=== PATIENT | female | born 1990 | race Caucasian/White ===

== ENCOUNTER 2017-11-09 17:11 | Emergency (ER) | payer OTHER ==
[~2017-11-09] VITALS: Ht 167.6 cm; Wt 68.0 kg
[2017-11-09 17:24] VITALS: TEMP 36.7; Ht 167.6 cm; Wt 68.0 kg
[2017-11-09] MEDS ORDERED: ACETAMINOPHEN 500 MG TAB PO STA (17:58)
--- NOTE | 2017-11-09 18:02 | EMERGENCY ROOM VISIT NOTE ---
ED Visit Note First contact with patient: 17:28 CHIEF COMPLAINT: Right knee pain HISTORY OF PRESENT ILLNESS: This 27-year-old female patient presents to the emergency department, via wheelchair, approximately 2 hours after sustaining an injury to the right knee when it buckled under her while she was raking leaves. The patient states she does not recall what sort of position she was in, but felt that the right knee buckled inwards, and she heard a crack. She fell down and landed on her left side, but denies any left lower extremity pain. She has not been able to put any weight on the right lower extremity, and describes the pain mostly around the right patella. She does report some discomfort from the right ankle radiating to the right hip. She denies any back injury.. The patient denies any other injuries besides their knee. The patient denies swelling or bruising. They rate the pain as sharp and 9/10. The patient states they are not able to walk on it. She does report a tingling sensation in the lower extremity since sitting down. No previous injuries to this knee. No ankle, foot or hip pain. She did take 800 mg ibuprofen prior to arrival. REVIEW OF SYSTEMS: A 6 system review of systems was completed with positives and pertinent negatives listed in the HPI. ALLERGIES: Penicillin MEDICATIONS: None PMH: Factor 5 mutation, iliac artery clot SOCIAL HISTORY: The patient lives locally with family. She denies drug, alcohol use. She admits to smoking cigarettes. PHYSICAL EXAM: Vital Signs: Reviewed Nurse's notes, vital signs stable. GENERAL : This is a 27-year-old white female, no acute distress, but appears in pain, well-developed, well-nourished. MENTAL STATUS: Alert, oriented to person place and time, and cooperative. MUSCULOSKELETAL: The right knee is mildly swollen. There is no ecchymosis. There is no significant joint effusion present. The patient is tender just inferiorly to the patella. There is mild joint line tenderness. The patella does appropriately subluxate. Range of motion is limited at the extremes of range due to pain. Strength of the quads and hamstrings is 5/5. Bobby's is negative. Sukhdev's and Anterior Drawer tests are negative. There is discomfort, but no laxity with varus and valgus stressing. The foot and toes are warm and well-perfused. Dorsalis pedis pulse 2+. Sensation to pain and light touch is intact. Capillary refill less than 2 seconds. RADIOLOGY: R KNEE 3 VIEWS CLINICAL HISTORY: 27 years-old Female presenting with right knee pain. TECHNIQUE: Frontal, lateral, and sunrise views of the right knee were obtained. COMPARISON: None. FINDINGS: No acute fracture or malalignment. No advanced degenerative change. No radiographic soft tissue abnormality. IMPRESSION: No acute osseous injury. Electronically signed by: Jhon Doan M.D. 11/09/2017 6:28 PM Dictated Date/Time: 11/09/2017 6:28 PM EMERGENCY DEPARTMENT COURSE: I examined the patient. The patient was given 1 g of Tylenol p.o. for her pain, as she had recently taken Motrin. X-rays of the right knee were reviewed by myself and read by radiology and reveal no acute bony abnormality. The patient was placed in a knee immobilizer under my direction and the position was satisfactory. The patient was instructed on the use of crutches. The patient was discharged home in good condition. I attest that I have personally reviewed the patient's current medication list. Patient was found to have normal blood pressure on screening and does not require follow-up. Etiologies such as soft tissue injury, fracture, dislocation, neurovascular compromise, compartment syndrome, as well as others were entertained. DIAGNOSIS: Right knee sprain The chart was completed utilizing [employer] Speech voice recognition software. Grammatical errors, random word insertions, pronoun errors, and incomplete sentences are an occasional consequence of this system due to software limitations, ambient noise, and hardware issues. Any formal questions or concerns about the content, text, or information contained within the body of this dictation should be directly addressed to the provider for clarification. Problem List Medical Problems: (1) Bilateral pulmonary embolism Permanent Comment: 03/2014 Status: Resolved (2) Heterozygous factor V Leiden mutation Status: Chronic (3) Iliac vein thrombosis, left Status: Resolved (4) Pulmonary emboli Status: Resolved (5) Termination of Status: Resolved (6) Tobacco use disorder Status: Chronic Surgical Problems: (1) H/O wisdom tooth extraction Status: Chronic (2) History of induced by D&C Permanent Comment: 04/14/2014 Status: Chronic Social History Problems: (1) Tobacco abuse Status: Chronic Current/Historical Medications No Active Prescriptions or Reported Meds Allergies Coded Allergies: Penicillins (Verified Adverse Reaction, Mild, GI SYMPTOMS, 12/31/15) Vital Signs Date Time Temp Pulse Resp B/P (MAP) Pulse Ox O2 Delivery O2 Flow Rate FiO2 11/09/17 19:02 71 18 120/74 99 11/09/17 17:24 36.7 80 18 118/84 99 Room Air Medications Administered Medications (Trade) Dose Ordered Sig/Chanda Route Start Time Stop Time Status Last Admin Dose Admin Acetaminophen (Tylenol Tab) 1,000 mg NOW STAT PO 11/09/17 17:58 11/09/17 17:59 DC 11/09/17 18:14 1,000 MG Departure Information Impression Primary Impression: Sprain of knee Dispostion Home / Self-Care Condition GOOD Prescriptions No Active Prescriptions or Reported Meds Referrals No Doctor, Assigned (PCP) Jhon Costello M.D. Patient Instructions ED Sprain Knee, [facility] Additional Instructions You have been treated in the Emergency Department for Knee Pain. For pain control, you can use the following [id number] medicines (if >12 yo): Ibuprofen(Motrin, Advil) may be used for fever or pain. Use 600mg every six hours as needed. Take with food. Avoid using more than 2400mg in a 24 hour period. Do not use 2400mg per day for more than three consecutive days without physician direction. Prolonged inappropriate use can lead to stomach upset or ulcers. (AND/OR) Acetaminophen(Tylenol) may be used for fever or pain. Use 1000mg every six to eight hours as needed. Avoid using more than 3000mg in a 24 hour period. If this is a recent injury (<24 hrs), ice can be applied to the area of pain for the first 3 days to help decrease pain and inflammation. Ice massages can be performed by freezing water in a paper cup, peeling back the cup to expose the ice and then massaging over the affected area. You have been provided the number for an Orthopaedic Surgeon. You should call this number on Sunday if no improvement to establish a follow-up visit from today's Emergency Department visit. Use the knee immobilizer for comfort. Use the crutches you have been provided to keep ALL weight off of the knee until weight bearing is tolerable. Return to the Emergency Department if your current symptoms worsen despite treatment course outlined above. Problem Qualifiers Primary Impression: Sprain of knee Encounter type: initial encounter Involved ligament of knee: unspecified ligament Laterality: right Qualified Codes: S83.91XA - Sprain of unspecified site of right knee, initial encounter
--- NOTE | 2017-11-09 18:30 | DIAGNOSTIC IMAGING REPORT ---
R KNEE 3 VIEWS CLINICAL HISTORY: 27 years-old Female presenting with right knee pain. TECHNIQUE: Frontal, lateral, and sunrise views of the right knee were obtained. COMPARISON: None. FINDINGS: No acute fracture or malalignment. No advanced degenerative change. No radiographic soft tissue abnormality. IMPRESSION: No acute osseous injury. Electronically signed by: Jhon Doan M.D. 11/09/2017 6:28 PM Dictated Date/Time: 11/09/2017 6:28 PM
[2017-11-09 19:02] VITALS: BP 120/74; PULSE 71; O2SAT 99
== END 2017-11-09 19:05 | disposition home or self-care (01) ==
LOC: C.EDB 17:12 → C.EDD 19:05
DX: S83.91XA Sprain of unspecified site of right knee, initial encounter (principal); X50.0XXA Overexertion from strenuous movement or load, initial encounter; Y93.H1 Activity, digging, shoveling and raking; D68.51 Activated protein C resistance; F17.210 Nicotine dependence, cigarettes, uncomplicated; Z86.711 Personal history of pulmonary embolism; Z88.0 Allergy status to penicillin